=== PATIENT | male | born 1995 | race Caucasian/White ===

== ENCOUNTER → 2017-11-03 08:06 | Outpatient (CLI) | payer OTHER, SELFPAY ==
--- NOTE | 2017-11-03 | DI.MRI.S_ITS ---
PROCEDURE: MR KNEE RT WO CON INDICATIONS: 22 year-old male with right knee injury 2 weeks ago. TECHNIQUE: Noncontrast sagittal PD fast spin echo and T2 fast spin echo with fat saturation, sagittal 3-D FLASH with fat saturation; coronal T1 spin echo and PD fast spin echo with fat saturation, and axial PD fast spin echo with fat saturation through the knee. COMPARISON: None. FINDINGS: Image quality: Excellent. Menisci: The medial and lateral menisci demonstrate normal morphology and internal signal. The meniscal root ligaments appear intact. Cruciate ligaments: The anterior cruciate ligament appears indistinct, consistent with full thickness tear. The posterior cruciate ligament appears intact. Medial structures: The medial collateral ligament appears intact. The posterior oblique ligament, semimembranosus tendon insertions, oblique popliteal ligament, and meniscocapsular junction appear intact. Visualized portions of the pes anserinus tendons appear normal. No abnormal bursal fluid. Lateral structures: The lateral collateral ligament, long and short heads of the biceps femoris tendon appear intact. The popliteus tendon appears normal; the popliteofibular ligament appears intact. The posterosuperior and anteroinferior popliteomeniscal fascicles appear intact. The arcuate ligament appears intact, just anterior to the lateral inferior geniculate artery. Iliotibial band appears normal. Anterior structures: The quadriceps and patellar tendons appear intact. Patellar alignment is normal. No femoral trochlear dysplasia or ventral trochlear prominence. No edema in the infrapatellar fat pad. Bones and cartilage: Bone marrow contusions involve the midportion of the lateral femoral condyle, as well as the posterolateral tibial plateau. There is tiny localized bone marrow contusion of the medial femoral condyle as well. No fractures. The cartilage of the medial and lateral femorotibial compartments, as well as the patellofemoral compartment, appears normal in thickness. Joint space: There is small knee joint effusion and trace Lee's cyst. Normal appearing synovial plicae are incidentally noted. IMPRESSION: 1. Full thickness tear of the anterior cruciate ligament, with typical bone marrow contusion pattern of the lateral femoral condyle and posterolateral tibial plateau, reflecting classic pivot-shift mechanism of injury. 2. No associated meniscal tears or other ligament tears. No osteochondral injuries. 3. Small knee joint effusion and trace Lee's cyst. Dictated by: Jackson Espinoza M.D. on 11/03/2017 at 9:43 Approved by: Jackson Espinoza M.D. on 11/03/2017 at 9:49
== END ==
PROVIDERS: Visit Provider Physician Assistant
DX: S83.511A Sprain of anterior cruciate ligament of right knee, initial encounter (principal); M25.461 Effusion, right knee; M71.21 Synovial cyst of popliteal space [Baker], right knee
CPT/HCPCS: 73721

== ENCOUNTER 2018-01-13 06:43 | Day surgery (SDC) | payer OTHER, SELFPAY ==
[2018-01-09 13:52] VITALS: BMI 27.3
[2018-01-13 07:12] VITALS: BP 122/79; PULSE 80; RESP 16; TEMP 37.2; O2SAT 99; BMI 27.1
[2018-01-13] MEDS: LACTATED RINGERS 1,000 ML 42 ML IV (07:41)
--- NOTE | 2018-01-13 07:54 | PM.PREOP ---
Pre-operative Note Interval Note Pre-op Check: Yes History & Physical Reviewed by Physician and Yes Exam Performed Changes: No
[2018-01-13] MEDS: CEFAZOLIN 2 GM/100 ML FROZ.PIGGY IV (07:57)
--- NOTE | 2018-01-13 08:49 | SUR.OPER ---
Supine on padded OR bed, head on pillow, arms secured on padded arm boards at <90 degrees abduction, legs uncrossed, safety belt at thigh, tape over blanket over lower legs.
[2018-01-13] MEDS: BACITRACIN 50,000 UNIT VIAL 50000 UNIT IRR (09:02)
[2018-01-13] MEDS: BUPIVACAINE 0.25% (PF) VIAL 30 ML INJ (09:02)
[2018-01-13] MEDS: SODIUM CHLORIDE IRRIG SOLUTION 3,000 ML, EPINEPHrine 1 MG IRR (09:05)
--- NOTE | 2018-01-13 09:30 | DI.RAD.S_ITS ---
PROCEDURE: XR KNEE RT 1TO2V INDICATIONS: RIGHT KNEE ACL REPAIR TECHNIQUE: 2 views of the knee were acquired. COMPARISON: None. FINDINGS: Bones: No fractures or dislocations. No suspicious bony lesions. Soft tissues: No joint effusion. No suspicious soft tissue calcifications. IMPRESSION: Normal operative alignment related to ACL repair. Dictated by: Ángel Martinez M.D. on 01/18/2018 at 8:45 Approved by: Ángel Martinez M.D. on 01/18/2018 at 8:46
[2018-01-13 10:40] VITALS: BP 113/79; PULSE 103; RESP 16; TEMP 36.7; O2SAT 96
[2018-01-13] MEDS: fentaNYL 100 MCG/2 ML INJ 50 MCG IV ×2 (10:47→10:55)
--- NOTE | 2018-01-13 10:47 | P.PCN_ITS ---
Procedures Date/Time Date of procedure: 01/13/18
--- NOTE | 2018-01-13 10:47 | PM.PROC.1 ---
Procedures Date/Time Date of procedure: 01/13/18
[2018-01-13 10:50] VITALS: BP 109/74; PULSE 101; RESP 16; O2SAT 97
[2018-01-13 11:06] VITALS: BP 160/82; PULSE 101; RESP 17; O2SAT 98
--- NOTE | 2018-01-13 11:10 | P.OP_ITS ---
Operative Date/Time/Diagnoses Date of procedure: 01/13/18 Time of procedure: 08:30 Pre-op diagnosis: Right knee anterior cruciate ligament tear Post-op diagnosis: same Procedure & Clinicians Procedure: Right knee arthroscopic assisted anterior cruciate ligament reconstruction with hybrid hamstring autograft and tibialis anterior allograft Same procedure as scheduled: Yes Indications: This is a 22-year-old male who sustained a non contact injury to his right knee in October of 2017. Imaging was obtained by his primary care provider that showed a anterior cruciate ligament tear. He continued to have instability and pain despite activity modification, physical therapy and nonsteroidal anti-inflammatories. The risks, benefits, indications, and expectations of treatment options were discussed with the patient. The risks of surgery to include but not limited to infection, bleeding, damage to neurovascular structures, need for additional surgery, persistent worsening pain , recurrence ligament tears, iatrogenic chondromalacia, iatrogenic fracture, deep vein thrombosis, pulmonary embolism, loss of limb and loss of life were discussed with the patient. All questions were answered, the patient elected proceed with surgery and informed consent was obtained. Surgeon: Irena Rose Technical Business Systems Analyst: Abilio Lemon Anesthesia Type: General (LMA) and Local (30 mL of 0.25 upivacaine without epinephrine) Operative Notes Findings: Right knee complete anterior cruciate ligament tear from the lateral wall of the notch. Closure Type: primary Implants & Drains: 1. Arthrex tight rope. 2. Arthrex 9 mm GraftBolt. 3. Tibialis anterior allograft. Estimated Blood Loss (mL): 10 Blood products transfused: none Tourniquet time (min): 0 Procedure in detail: The patient was met in the preoperative hold area on the morning of surgery were reconfirmed that we had the correct patient, we were planning to do the correct procedure and had the correct extremity, which was the right lower extremity identified. Prior to the patient receiving any medications the operative extremity was initialed by the surgeon. The patient was then brought back to the operating room in stable condition and placed supine on the operating room table. All bony prominences well padded and sequential compression devices were placed on the nonoperative leg. General anesthesia was induced without complication and LMA was placed. Examination under anesthesia showed the patient to have a 2A Art's and a positive pivot shift. His range of motion was from 0-140 degrees of flexion. His knee was stable to varus and valgus at both 0 and 30?. He had a negative dial test. The right lower extremity was then prepped and draped in usual sterile fashion. After final draping additional ChloraPrep was utilized on the operative site. 3 min were allowed to elapse to enable ChloraPrep to dry. We had a surgical time out reconfirmed with the correct patient, we will plan to do the correct procedure had the correct extremity which was the right lower extremity identified. We also confirmed the patient received preoperative antibiotics, that all necessary care was in the room confirmed sterile and that necessary implants were present and no members of the operative team had any concerns. I began by making standard anterolateral portal incision by 1st sharply incising the skin with a#11 blade and then inserting the trocar with a blunt introducer into the patellofemoral joint. I then inserted the camera and began my examination. There are no significant lesions of the patella or the trochlea. There was a medial plica. There are no loose bodies in the lateral gutter. I then continued my exam to the medial compartment. After localizing with a 18 gauge needle I then made a medial portal under direct visualization with a#11 blade. I then inserted the blunt introducer to further establish the portal. I then inserted the probe and continued my examination. The medial meniscus was intact. There is mild grade 1 chondromalacia or softening of the medial tibial plateau. The medial femoral condyle was without significant lesion. I then continued my exam to the notch where the anterior cruciate ligament was completely torn from the lateral wall. The PCL was intact. I then continued my exam into the lateral compartment where the lateral meniscus was intact. The lateral femoral condyle lateral tibial plateau were without significant lesions. I then turned my attention to harvesting the hamstring tendons. I made an incision on the medial tibia in line with the leg approximately 2 fingerbreadths below the joint line. After sharply incising the skin I then utilized electrocautery to dissect through the subcuticular layer. I then identified the sartorial fascia and the hamstring tendons. I then utilized a knife to incise through the sartorial fascia in line with the superior border of the gracilis and then continued the incision in line with the tibia at the medial aspect of the wound down to the bone such that it was a inverted hockey- stick incision. I then the hamstring tendons off of the medial collateral ligament. I then the gracilis from the semitendinosus and the tendons from the sartorial fascia. Then tagged the sartorial fascia with Ethicon suture. I then whipstitched the end of the gracilis and semitendinosus tendons utilizing#2 FiberWire. I then utilized my finger to bluntly dissect around each of the tendons ensure there were no fascial attachments. I then utilized a tendon stripper to harvest each of the tendons. Each of the tendons was harvested intact. These were then brought to the back table where any remaining muscle on the tendons was debrided and the other end of the tendons was whipstitched with a#2 FiberTape loop. The tendons were then doubled over an umbilical tape and measured to be 7 mm in diameter. Because this was less than 8 mm, the decision was made to add allograft tibialis anterior tissue to bring the tendon diameter 8 mm. A tibialis anterior graft was thawed in bacitracin and then cut longitudinally. Both ends of the graft were then whipstitched utilizing#2 FiberTape loop. The graft was then doubled over umbilical tape measured now to be a tight 8 mm. Therefore decision was made to drill 8 mm tunnels. I then reinserted the camera into the knee and utilized a sucker shaver and SURFAS Wand to debride the lateral wall of the notch. I localized the appropriate place on the lateral condyle just superior to the cartilage margin and anterior to the posterior aspect of the femoral condyle and marked this with the Powered by PeakAS launch. I then changed my visualization visualizing from the medial aspect and inserted the femoral drill guide through the lateral portal and placed this appropriately on the lateral wall of the notch. I then marked on the lateral aspect of the femur in the appropriate place to make an incision , and then made an incision through the skin, subcuticular layer and iliotibial band. I then placed the guide bullet down to the lateral femoral cortex. The tunnel length measured 38 mm. I then utilized a 8 mm flip cutter and drilled from the lateral cortex of the femur into the knee utilizing the guide. I then flipped the flip cutter and confirmed that the tunnel would be appropriately placed and then retrograde drilled 20 mm. I then withdrew the drill and placed a #2 FiberWire from the lateral cortex into the joint through the tunnel and then retrieved this out the lateral portal. I then placed the tibial drill guide into the knee through the medial portal while visualizing from the lateral portal. After confirming appropriate placement I then placed the guide bullet down to the cortex on the tibia and this tunnel measured 40 mm. I then drilled with a guide pin from the tibial cortex into the knee joint and confirmed that this was appropriately placed. We then drilled over this utilizing a 8 mm drill. I then withdrew the end of the FiberWire suture that was going through the femoral tunnel out through the tibial tunnel. I then placed the graft which had been on 20 lb of tension onto a ACL tight rope and utilized the FiberWire suture that was going through the tunnels to pull the sutures from the tight rope through the tibial tunnel and out through the femoral tunnel. I then reinserted the camera and while visualizing continued to pull the tightrope and graft up into the knee until the button had come outside the lateral cortex of the femur. I then flipped the button and pulled on the graft confirming that the button was firmly seated. I then obtained AP and oblique fluoroscopy confirming that the button was appropriately seated on the lateral cortex of the femur. I then cinched the graft up into the tunnel. I then placed a Nitinol wire into the tibial tunnel and dilated over this with a 7 mm, 8 mm and 9 mm dilator mild our proper pressure was applied to the graft and a posterior drawer was placed on the knee. Decision was then made to place a 9 mm graft bolt into the tibial tunnel. I inserted the sheath for the graft bolt while tension remained on the graft. I then placed the screw into the sheath, which had a tight fit. I then performed a Art's which was a 1A. I then inserted the camera back into the knee to confirm that the graft was appropriately placed in appropriately taut. As I confirmed that the graft did not impinge on the roof of the notch. I then thoroughly irrigated all wounds. The remaining graft coming out the tibial tunnel was then truncated sharply. The sartorial fascia on the tibial incision was closed utilizing 0 Vicryl in a [id number] fashion. The iliotibial band on the femoral incision was closed utilizing 2-0 Vicryl in a [id number] fashion. The subcuticular layer of each of the incisions was closed utilizing 2-0 Vicryl in a buried interrupted fashion. The skin incisions of the femur and portals was closed utilizing 3-0 Monocryl in a interrupted buried fashion. The skin of the tibial incision was closed utilizing 3-0 Monocryl in a buried running fashion. Mastisol Steri-Strips were then placed over each of the incisions. 30 mL of 0.25% bupivacaine without epinephrine was then injected about the incisions. The wounds were then dressed with sterile Xeroform, plain gauze and an abdominal pad. A Satish hose was then placed over this to hold the dressing in place. All sponge counts and needle counts were correct at the conclusion of the case. Patient was woken from general anesthesia without complication taken to the PACU in stable condition. Complications: none Condition: stable Disposition: PACU Plan for aftercare: The patient will discharge home same day of surgery. He may weightbear as tolerated on his right lower extremity may bend his right knee as tolerated. We will see the patient back in clinic in 10-14 days for wound check at which time we will initiate physical therapy. He will remain in his postoperative range of motion brace until 6 weeks postoperative at which time he may discontinue full-time use of the brace. If he has adequate quad strengthening to begin the walk to run program on flat surfaces at 12 weeks with goal of returning to full activity at 5 months.
[2018-01-13] MEDS: HYDROCODONE/ACET 5/325 TABLET 1 TAB PO (11:12)
[2018-01-13 11:13] VITALS: BP 139/94; PULSE 90; RESP 17; TEMP 36.6; O2SAT 98
[2018-01-13 11:23] VITALS: BP 138/86; PULSE 88; RESP 17; TEMP 37; O2SAT 94
== END 2018-01-13 11:41 | disposition home or self-care (01) ==
PROVIDERS: PCP General Practice; Visit Provider Orthopaedic Surgery
PROC: (CPT 29888; principal; 2018-01-13 07:45)
DX: M23.611 Other spontaneous disruption of anterior cruciate ligament of right knee (principal); F17.210 Nicotine dependence, cigarettes, uncomplicated
CPT/HCPCS: 29888; 73560; 76001; J0171; J0690; J1100; J1170; J2405; J2704; J3010